=== PATIENT | female | born 1975 | race Caucasian/White ===

== ENCOUNTER 2024-03-02 08:18 | Outpatient (CLI) | payer BC | END 2024-03-02 08:19 | disposition home or self-care (01) | LOC: CSHSLEEP 08:18 | PROVIDERS: ATTEND Family Medicine | DX: R53.83 Other fatigue (principal); R51.9 Headache, unspecified; E66.9 Obesity, unspecified; Z68.36 Body mass index [BMI] 36.0-36.9, adult; R06.83 Snoring; G47.33 Obstructive sleep apnea (adult) (pediatric) | CPT/HCPCS: 95810 ==

== ENCOUNTER 2025-04-14 15:34 | Outpatient (CLI) | payer BC | END 2025-04-14 15:35 | disposition home or self-care (01) | LOC: CSHMAMMO 15:34 | PROVIDERS: ATTEND Family Medicine | DX: Z12.31 Encounter for screening mammogram for malignant neoplasm of breast (principal); Z80.3 Family history of malignant neoplasm of breast | CPT/HCPCS: 77063; 77067 ==